=== PATIENT | female | born 1985 | race Two or more races ===

== ENCOUNTER 2023-12-02 09:07 | Emergency (ER) | payer OTHER, SELFPAY ==
--- NOTE | ~2023-12-02 | CT_ITS ---
EXAMINATION: CT SOFT TISSUE NECK WITH CONTRAST CLINICAL INFORMATION: Right-sided pain and swelling under jaw. COMPARISON: None available. TECHNIQUE: Following the intravenous administration of 60 mL of Omnipaque 350 contrast, helical imaging was performed in the axial plane with generation of coronal and sagittal reformatted images. This CT examination was performed using dose optimization techniques as appropriate, variously including the following: *Automated exposure control *Adjustment of mA and/or kV according to patient size (this includes techniques or standardized protocols for targeted exams where dose is matched to indication/reason for exam; i.e. extremities or head) *Use of iterative reconstruction technique DLP: 669 mGy-cm FINDINGS: There are focal inflammatory changes in the right lower facial soft tissues with mild thickening of the overlying skin surface from presumed cellulitis. The right hemimandibular gingivobuccal soft tissues are mildly thickened. No periodontal or periapical disease is seen. No drainable fluid collection is identified. The submandibular and parotid glands are homogeneous in attenuation. No pathologically enlarged cervical lymph nodes are visible. The oral cavity, pharynx mucosal space, and larynx are normal. The thyroid gland is homogeneous. The airway is normally maintained. The paranasal sinuses and mastoid air cells are clear. There is a 1 cm air density in the right tracheoesophageal groove at the C6-C7 level which may represent an incidental Zenker's diverticulum. The imaged mediastinum is normal. No acute osseous abnormality seen. The carotid sheath vasculature appears normal. The orbits are normal. The imaged portions of the brain demonstrate no acute abnormality. There are patchy and confluent groundglass densities in the imaged portions of the lungs, more so in the upper lobes. No pleural effusion is seen. CT/CT soft tissue neck w IV con IMPRESSION: Nonspecific focal inflammatory changes in the right hemimandibular gingivobuccal soft tissues and right lower facial subcutaneous tissues. No obvious periodontal or periapical disease seen in the right mandibular dentition. No drainable fluid collection or cervical adenopathy. Mild patchy and confluent groundglass densities in the imaged lungs, more so in the upper lobes which may be due to atelectatic and hypoventilatory changes. An infectious or inflammatory process cannot be ruled out on the basis of imaging; clinically correlate. Electronically signed by: Antonio Davis MD 12/02/2023 01:14 PM EDT
[2023-12-02 09:09] VITALS: BP 136/66; PULSE 64; RESP 16; TEMP 36.6; O2SAT 98; BMI 37.7
[2023-12-02 09:41] VITALS: BP 140/89; PULSE 79; RESP 18; TEMP 36.7
--- NOTE | 2023-12-02 09:44 | ED.GENADULT ---
HPI - General Adult General Chief complaint: General Medical Stated complaint: r face numb-swelling Time Seen by Provider: 12/02/23 09:44 History of Present Illness ED Provider: Mark PETE narrative: The patient is a 38-year-old woman who says that last night at around 20:00 she developed a sense of discomfort, swelling, and numbness under the right jaw. She denies any dental pain. She denies any trauma. She has not had a fever. She has this before. Came to the emergency room for evaluation. Related Data Previous Rx's ?Medication ?Instructions ?Recorded amoxicillin 875 mg-potassium 1 tab PO BID #20 tabs 12/02/23 clavulanate 125 mg tablet doxycycline monohydrate 100 mg 100 mg PO BID #20 caps 12/02/23 capsule Allergies Allergy/AdvReac Type Severity Reaction Status Date / Time latex Allergy Itching Verified 12/02/23 09:13 Review of Systems Review of Systems: Yes all other systems are reviewed and are negative [facility] Social History Social History Advance Directives: Yes Advance Directives Information Provided: Yes Advance Directives on File: No Physical Exam ED Vital Signs: Vital Signs - 24 hr 12/02/23 09:09 12/02/23 09:41 12/02/23 14:55 Temperature 98 F 98.1 F 97.6 F Pulse Rate 64 79 61 Respiratory Rate 16 18 16 Blood Pressure 136/66 140/89 H 116/76 Pulse Oximetry 98 99 Oxygen Delivery Method Room Air Room Air Room Air BMI result Body Mass Index 37.7 Const Other: The patient is a 38-year-old woman who was awake and alert. She has some mild swelling over the right jaw but otherwise does not appear in distress. HENMT Other: Mild swelling to the skin over the right jaw. No erythema. She has tenderness in the region of the swelling which is just under the right mandible. There is no trismus. No obvious dental abnormality. No tenderness with dental tapping. No cervical adenopathy. No elevation of the floor of the mouth. The floor of the mouth is not tender. Eyes General: appearance normal, both eyes and all related structures Pupils: Equal, round and reactive pupils present EOM: EOMs intact bilaterally Neck Other: The patient has swelling and tenderness just under the right mandible. There is no adenopathy in the neck. She has good range of motion of the neck. Resp Effort & Inspection: normal respiratory effort Auscultation: clear to auscultation bilaterally Cardio Rate: regular rate Rhythm: regular rhythm Heart sounds: S1 normal heart sound present and S2 normal heart sound present Skin Other: There is some mild soft tissue swelling and tenderness on the right side of the jaw, just under the jaw. No fluctuance. No erythema. Neuro Other: The patient is awake, alert, with a normal mental status. She has some slight asymmetry of the face with smiling. I think this is because of the soft tissue swelling at the right jaw rather than because of any neurological deficit. Speech is clear. Eye movements intact. Normal gait. Cranial nerves: Yes Equal, round and reactive pupils present Extrem Other: No peripheral edema Medications Administered Discontinued Medications Generic Name Dose Route Start Last Admin Trade Name Freq PRN Reason Stop Dose Admin Doxycycline Monohydrate 100 mg 12/02/23 13:25 12/02/23 14:39 Doxycycline Monohydrate 100 Mg Capsule PO 12/02/23 13:26 100 mg ONCE ONE Administration Sodium Chloride 1,000 mls @ 999 mls/hr 12/02/23 10:15 12/02/23 11:41 Ns IV 12/02/23 11:15 Infused .Q1H1M JT Infusion Sodium Chloride 1,000 mls @ 999 mls/hr 12/02/23 11:45 12/02/23 14:34 Ns IV 12/02/23 12:45 Infused .Q1H1M JT Infusion Ampicillin Sodium/Sulbactam 100 mls @ 200 mls/hr 12/02/23 13:23 12/02/23 14:38 Sodium 3 gm/ Sodium Chloride IV 12/02/23 13:52 200 mls/hr ONCE ONE Administration Iohexol 100 ml 12/02/23 12:49 12/02/23 12:50 Iohexol 350 Mg/Ml 100 Ml Infus..Btl IV 12/02/23 12:50 60 ml ONCE ONE Administration Ketorolac Tromethamine 10 mg 12/02/23 13:26 12/02/23 14:39 Ketorolac Tromethamine 15 Mg/Ml Vial IVPUSH 12/02/23 13:27 10 mg ONCE ONE Administration Medical Decision Making Medical Decision Making MDM Narrative: The patient is a 38-year-old female who presents with less than 24 hours of swelling and discomfort and numbness to the right side of her jaw. I do not appreciate any odontogenic source of infection. I do not appreciate any fluctuance in the area of swelling and tenderness. She does not look toxic. A CT of the neck shows: Nonspecific focal inflammatory changes in the right hemimandibular gingivobuccal soft tissues and right lower facial subcutaneous tissues. No obvious periodontal or periapical disease seen in the right mandibular dentition. No drainable fluid collection or cervical adenopathy. I believe the patient has a non odontogenic soft tissue infection to the skin over the jaw. She was given 3 g of IV Unasyn and 100 mg of oral doxycycline. She will be discharged with a prescriptions for Augmentin and doxycycline. She should take these antibiotics. She should follow up with the regular doctor. She should return to the emergency room if worse. Labs were unremarkable. Lab Data 12/02/23 12:00 12/02/23 12:00 Labs: Lab Results 12/02/23 Range/Units 12:00 WBC 9.2 (4.8-10.8) X10*3/uL RBC 4.25 (4.20-5.50) X10*6/uL Hgb 13.1 (12.0-16.0) g/dl Hct 38.9 (37.0-47.0) % MCV 91.5 (80.0-98.0) fL MCH 30.8 (27.0-33.0) pg MCHC 33.7 (31.0-35.0) g/dl RDW 12.7 (11.0-16.0) % Plt Count 186 (160-400) X10*3/uL MPV 9.7 (9.4-12.3) fL Immature Gran % (Auto) 0.2 (0.0-0.4) % Neut % (Auto) 69.6 (45-73) % Lymph % (Auto) 19.9 L (20-40) % Custer % (Auto) 6.3 (2-11) % Eos % (Auto) 3.7 (0-4) % Baso % (Auto) 0.3 (0-2) % Lymph # (Auto) 1.8 (1.2-4.9) X10*3/uL Custer # (Auto) 0.6 (0.1-1.2) X10*3/uL Eos # (Auto) 0.3 (0.0-0.4) X10*3/uL Baso # (Auto) 0.0 (0.0-0.2) X10*3/uL Abs Immat Gran (auto) 0.02 (0.00-0.03) X10*3/uL Absolute Neuts (auto) 6.4 (2.0-8.3) x10*3/uL Absolute Nucleated RBC 0.000 (0.0-0.012) X10*3/uL Nucleated RBC % (auto) 0.0 (0.0-0.2) /100WBC Sodium 140 (135-145) mmol/L Potassium 3.7 (3.3-5.1) mmol/L Chloride 107 (96-108) mmol/L Carbon Dioxide 24 (22-29) mmol/L Anion Gap 13 (12-20) BUN 8 L (9-16) mg/dL Creatinine 0.64 (0.5-1.4) mg/dL Estim Creat Clear Calc 124.4 Estimated GFR > 60 Random Glucose 91 (60-115) mg/dL Calcium 8.9 (8.4-10.2) mg/dL C-Reactive Protein 2.15 H (< or = 0.50) mg/dL Beta HCG, Quant < 2 mIU/mL Discharge Plan Discharge Clinical Impression: Cellulitis of face Patient Disposition: Home, Self-Care Instructions: Cellulitis (ED) Additional Instructions: You have an infection in the soft tissues of your face near the right jaw. We call this kind of infection a cellulitis. You have been given 2 different antibiotics for this infection. Please take these antibiotics 2 times a day. Take a dose of the each of these antibiotics this evening. Please follow up with your regular doctor in the next several days for a recheck. You may use ibuprofen and acetaminophen as needed for discomfort. Return to the emergency room if significantly worse. Prescriptions: New amoxicillin-pot clavulanate 875-125 mg tablet 1 tab PO BID Qty: 20 0RF doxycycline monohydrate 100 mg capsule 100 mg PO BID Qty: 20 0RF Referrals: Mari irma. Kayla Gonzales [Provider Group] (facial cellulitis) Interventions: ED Discharge Assessment Last Done: 12/02/23 14:55 Discharge Date/Time: 12/02/23 14:55 Print Language: [place] Islander
[2023-12-02] MEDS: 0.9 % Sodium Chloride 1,000 ML 999 ML IV ×2 (10:24→12:46)
--- NOTE | 2023-12-02 10:26 | PC.NURSE ---
Pt. medicated per JUN.
--- NOTE | 2023-12-02 10:27 | PC.NURSE ---
20G to LAC. Tolerated well. Good blood return.
[2023-12-02 12:04] LABS: MANUAL DIFF FLAG NO
[2023-12-02 12:07] LABS: Basophils Percent Auto 0.3 % (0-2); Eosinophils Absolute Auto 0.3 X10*3/uL (0.0-0.4); Eosinophils Percent Auto 3.7 % (0-4); Hematocrit 38.9 % (37.0-47.0); Hemoglobin 13.1 g/dl (12.0-16.0); Imm Gran Abs Auto 0.02 X10*3/uL (0.00-0.03); Imm Gran Pct Auto 0.2 % (0.0-0.4); Lymphocytes Absolute Auto 1.8 X10*3/uL (1.2-4.9); Lymphocytes Percent Auto 19.9 % (20-40); Mean Corpuscular HGB Conc 33.7 g/dl (31.0-35.0); Mean Corpuscular Hemoglobin 30.8 pg (27.0-33.0); Mean Corpuscular Volume 91.5 fL (80.0-98.0); Mean Platelet Volume 9.7 fL (9.4-12.3); Monocytes Absolute Auto 0.6 X10*3/uL (0.1-1.2); Monocytes Percent Auto 6.3 % (2-11); Neutrophils Absolute Auto 6.4 x10*3/uL (2.0-8.3); Neutrophils Percent Auto 69.6 % (45-73); Platelet Count 186 X10*3/uL (160-400); Red Blood Count 4.25 X10*6/uL (4.20-5.50); Red Cell Distribution Width 12.7 % (11.0-16.0); White Blood Count 9.2 X10*3/uL (4.8-10.8)
[2023-12-02 12:25] LABS: Anion Gap 13 (12-20); Blood Urea Nitrogen 8 mg/dL (9-16); C Reactive Protein 2.15 mg/dL (< or = 0.50); Calcium 8.9 mg/dL (8.4-10.2); Carbon Dioxide 24 mmol/L (22-29); Chloride 107 mmol/L (96-108); Creatinine Clr Calc Pharmacy 124.4; Estimated Glomerular Filt Rate > 60; Glucose Random 91 mg/dL (60-115); Potassium 3.7 mmol/L (3.3-5.1); Sodium 140 mmol/L (135-145)
[2023-12-02 12:28] LABS: HCG Quantitative < 2 mIU/mL
--- NOTE | 2023-12-02 12:35 | PC.NURSE ---
Pt. going to CT scan at this time
--- NOTE | 2023-12-02 12:45 | PC.NURSE ---
Pt. returned from CT scan
[2023-12-02] MEDS: iohexoL 350 MG/ML 100 ML INFUS..BTL IV (12:50)
[2023-12-02] MEDS: Ampicillin Sodium/Sulbactam Na 3 GM in 0.9 % Sodium Chloride 100 ML IV (14:38)
[2023-12-02] MEDS: Doxycycline Monohydrate 100 MG CAPSULE PO (14:39)
[2023-12-02] MEDS: Ketorolac Tromethamine 15 MG/ML VIAL 10 MG IVPUSH (14:39)
[2023-12-02 14:55] VITALS: BP 116/76; PULSE 61; RESP 16; TEMP 36.4; O2SAT 99
== END 2023-12-02 14:55 | disposition home or self-care (01) ==
PROVIDERS: Emergency Provider Emergency Medicine
DX: L03.211 Cellulitis of face (principal); R68.84 Jaw pain
CPT/HCPCS: 36415; 70491; 80048; 84702; 85025; 86140; 96361; 96374; 96375; 99284; J0295; J1885; Q9967

== ENCOUNTER 2024-07-18 08:48 | Outpatient (AMB) | payer OTHER, SELFPAY ==
--- NOTE | 2024-07-18 08:56 | AM.OFFWIN_ITS ---
Intake Vital Signs 07/18/24 08:57 Weight 209 lb BP 110/80 Blood Pressure Location Lt brachial Position Sitting Pulse 74 Pulse Source Pulse Oximeter Pulse Oximetry (%) 98 Oxygen Delivery Method Room Air Intake Visit Reasons: EP RT eye irritaiton Intake Note: Patient here for right eye itching and woke up with it closed with discharge this morning. Patient Tobacco Use Status: Current everyday Tobacco user Allergies latex Allergy (Verified 07/18/24 08:58) Itching Do you need a note to return to daycare/school/sports/work: No HPI HPI Comments History of Present Illness Details This is a 39-year-old female with no stated past medical history presenting for evaluation of redness and itching in her right eye that she woke up with yesterday and today. Patient denies having any fevers, chills, visual changes, blurry vision and does not wear any contacts or glasses for vision. Patient states she has not had contact with anyone with similar symptoms. Patient denies having any symptoms in her left eye. [facility] Social History Patient Tobacco Use Status: Current everyday Tobacco user Review of Systems Const All systems reviewed & are unremarkable except as noted in HPI and below Eyes Denies blind spots, Denies blurry vision, Denies change in vision, Reports eye discharge (OD) and Reports itchy eyes (OD) ENT Reports no additional complaints Card Reports no additional complaints Resp Reports no additional complaints GI Reports no additional complaints Musc Reports no additional complaints Skin/Breast Reports system reviewed and no additional complaints, except as documented Neuro Reports no additional complaints Psych Reports no additional complaints Endo Reports no additional complaints Chauncey/Lymph Reports no additional complaints Aller/Immun Reports no additional complaints and Reports itchy eyes (OD) Physical Exam Vital Signs: Last Vital Signs Pulse 74 07/18/24 08:57 BP 110/80 07/18/24 08:57 Pulse Ox 98 07/18/24 08:57 Oxygen Delivery Method Room Air 07/18/24 08:57 Const General: cooperative, healthy appearing, comfortable, no acute distress, well developed, alert, awake and Physically active Nutritional Appearance: well nourished Orientation/consciousness: patient oriented x3 Limitations: no limitations Eyes General: appearance normal, both eyes and all related structures Visual Vergara: normal visual vergara by confrontation Alignment and Position: alignment normal Periorbital: periorbital findings normal Eyelids: Yes eyelid abnormality (right upper eyelid with mild edema and TTP medial aspect) Conjunctivae: conjunctival abnormal (right conjunctiva injected; no discharge or foreign body noted) Sclerae: sclerae normal Corneas: corneas normal Pupils: Equal, round and reactive pupils present EOM: EOMs intact bilaterally Direct Ophthalmoscopy: normal light reflex and no photophobia Skin General skin exam: no rashes or lesions noted Neuro General: patient oriented x3 Cranial nerves: Yes Equal, round and reactive pupils present Psych Appearance: grossly normal Mental Status: mental status grossly normal Insight: Good insight present (Psych) Judgement: Good judgement present (Psych) Assessment & Plan Assessment & Plan (1) Conjunctivitis: Comment: Patient's symptoms are consistent with a conjunctivitis however there are no symptoms in the left eye. Patient will be treated with antibiotic eyedrops for prevention of an exacerbation. Code(s): H10.9 - Unspecified conjunctivitis Qualifiers: Conjunctivitis type: acute Acute conjunctivitis type: unspecified Plan: Polymyxin trimethoprim eyedrops q.i.d. x5 days. (2) Hordeolum: Comment: Patient's history coupled with her physical examination may be consistent with an evolving hordeolum of the right upper eyelid. Code(s): H00.019 - Hordeolum externum unspecified eye, unspecified eyelid Qualifiers: Hordeolum type: externum Laterality: right Eyelid: upper Qualified Code(s): H00.011 - Hordeolum externum right upper eyelid Plan: Warm compresses 4-5 times daily for 5-7 days. Tylenol as needed for discomfort. Medications: New polymyxin B sulf-trimethoprim 10,000 unit- 1 mg/mL 1 drp ophthalmic (eye) QID 5 days 10 mL 0RF Discontinued doxycycline monohydrate Discontinued Reason: Patient Completed Course 100 mg PO BID 20 caps 0RF amoxicillin-pot clavulanate 875-125 mg Discontinued Reason: Patient Completed Course 1 tab PO BID 20 tabs 0RF Coding Level of Care Code Est Pt Level 3 (54958) Diagnoses Conjunctivitis H10.9 Conjunctivitis type: acute Acute conjunctivitis type: unspecified Hordeolum externum of right upper eyelid H00.011 Hordeolum type: externum Laterality: right Eyelid: upper Time Spent (min) 20
[2024-07-18 08:57] VITALS: BP 110/80; PULSE 74; O2SAT 98
--- OUTSIDE RECORDS SUMMARY | 2024-07-18 09:20 | XMS_ITS | Clinical Summary ---
Author Organization [facility] [address] [place] [address] [place] [phone] Phone Care Team Providers Care Assistant Housekeeping Manager Name Role Phone Janee Cervantes MD Primary Care Prov ider Allergies Active Allergy Reactions Criticality Noted Date Comments Latex Hives 08/24/2016 Medications dicyclomine (BENTYL) 10 mg capsule Take 1 Capsule by mouth 3 times daily. 04/08/2023 Active nystatin (MYCOSTATIN) ointmentIndicat ions:Skin yeast infection Apply a thin layer to the affected area twice daily 30 g 05/26/2024 Active Active Problems Problem Noted Date Diagnosed Date Class 2 obesity due to exces s calories without serious comorbidity with body mass index (BMI) of 35.0 to 35.9 in adult 03/16/2024 Prediabetes 11/26/2023 Overview (03/16/2024): Lab Results Component Value Date HGBA1C 6.1 11/23/2023 Anemia 09/01/2010 Encounters Date Type Department Care Team Description 05/26/2024 10:15 AM EST Office Visit Obstetrics and Gynecology [address] [phone] Amelia Kwok CNM Skin yeast infection (Primary Dx) from Last 3 Months Immunizations Name Administration Dates Next Due HPV, Quadrivalent 07/26/2007,05/26/2007 Influenza trivalent, 0.5mL, preservative free (Fluarix; FluLaval; Fluzone) ages 6mo and older (Afluria) 3 years and older 02/23/2020,12/24/2014,01/11/2014 Tdap Tetanus diptheria acell ular pertussis (Boostrix; Adacel) 7yo and older 03/19/2015,09/13/2013,11/29/2009 Surgical History Surgery Date Site/Laterality Comments TUBAL LIGATION 2019 PROCEDURE: HISTORICAL TUBAL LIGATION Medical History Medical History Date Comments Anemia DX:Anemia Smoker DX:Smoker Obese DX:Obese History of depression DX:History of depression IUD (intrauterine device) in place 11/11/2015 DX:IUD (intrauterine device) in place; COMMENT: Mirena Family History Medical History Relation Name Comments Eczema Daughter 1 No Known Problems Daughter 2 Diabetes Father eczema, glaucom a Hyperlipidemia Father Hypertension Father Colon cancer Father's side aunt No Known Problems Maternal Grandfather No Known Problems Maternal Grandmother Diabetes Mother eczema, CTS Hyperlipidemia Mother Hypertension Mother Ovarian cancer Mother's side aunt Other: ? cancer Paternal Grandfather Alzheimer's disease Paternal Grandmother Hypertension Paternal Grandmother No Known Problems Sister 1 No Known Problems Sister 2 Other: Autism Son Relation Name Status Comments Daughter 1 Alive Daughter 2 Alive Father Alive Father's side Maternal Grandfather Maternal Grandmother Mother Alive Mother's side Paternal Grandfather Paternal Grandmother Sister 1 Alive Sister 2 Alive Son Alive Social History Tobacco Use Types Packs/Day Years Used Date Smoking Tobacco: Every Day Cigarettes Smokeless Tobacco: Never Alcohol Use Standard Drinks/Week Comments No 0 (1 standard drink = 0.6 oz pur e alcohol) Housing Instability Answer Date Recorde d Are you worried that in the next 2 months you may not have stable housing? No 05/19/2024 Food Access & Nutrition Answer Date Rec orded Do you have access to a vari ety of food including fruits and vegetables? No 05/19/2024 Access to Healthcare Answer Date Record ed Within the last 3 months, ho w many times did you visit the emergency department for your medical care? 0 05/19/2024 Health Literacy Answer Date Recorded How often do you need to hav e someone help you when you read instructions, pamphlets, or other written material from your doctor or pharmacy? Never 05/19/2024 Caregiver: How often do you need to have someone help you when you read instructions, pamphlets, or other written material from your doctor or pharmacy? Not on file 05/19/2024 Financial Risk Answer Date Recorded How hard is it for you to pa y for the very basics like food, housing, medical care, and air conditioning / heating? Somewhat hard 05/19/2024 Transportation Answer Date Recorded Has the lack of transportati on kept you from meetings, work, or from getting things needed for daily living? No Has the lack of transportati on kept you from medical appointments or from getting medications? No 05/19/2024 Social Isolation Answer Date Recorded How often do you feel lonely or isolated from th ose around you? Never 05/19/2024 Food Risk Answer Date Recorded Within the past 12 months we worried whether our food would run out before we got money to buy more. Sometimes true 025 Within the past 12 months th e food we bought just didn't last and we didn't have money to get more. Sometimes true 05/19/2024 Dependent Care Answer Date Recorded Do you need help finding or paying for care for your loved ones. For example, child care centre director or elderly care for an older adult? No 05/19/2024 Education Answer Date Recorded Do you think completing more education or training, like finishing a GED, going to college, or learning a trade, would be helpful for you? No 05/19/2024 Employment and Income Answer Date Recor ded During the last four weeks, have you been actively looking for work? Yes 05/19/2024 Living Situation Answer Date Recorded What is your living situation? 0 05/19/2024 Comments No Sex and Gender Information Value Date Recorded Sex Assigned at Not on file Legal Sex Female 3:30 AM EST Gender Identity Not on file Sexual Orientation Not on file Obstetrics History Para Term AB IAB SAB Ectopic Multiple Livin g Live Births 3 3 3 3 3 Date Outcome GA Total Labor Labor/2nd/3rd Weight Sex Type Anes PTL Elsi A1 A5 Name Clin 2013 Term 40w 1d 9h 12m/ 3277 g (115.6 oz) F Vag-S pont Epidur al Livin g 8 9 Yemiel andrade [facility] Delivery Location:[facility] 2015 Term 40w 1d 3544 g (125 oz) F Vag-S pont [facility] Marilu Reynolds Famil y life 2019 Term [place] lobo Last Filed Vital Signs Vital Sign Reading Time Taken Comments Blood Pressure 137/88 05/26/2024 10:07 AM EST Pulse 87 05/26/2024 10:07 AM EST Temperature - - Respiratory Rate - - Oxygen Saturation - - Inhaled Oxygen Concentration - - Weight 90 kg (198 lb 6.4 oz) 05/26/2024 10:07 AM EST Height 154.9 cm (5' 1 ) 05/26/2024 10:07 AM EST Body Mass Index 37.49 05/26/2024 10:07 AM EST Plan of Treatment Upcoming Encounters Date Type Department Care Team (Late st Contact Info) Description 10/11/2024 11:15 AM EDT Office Visit Obstetrics and Gynecology [address] [phone] Amelia Kwok, RENATO [address] [place], [place] 11/27/2024 12:00 PM EDT Office Visit Adult Medicine [facility] - [address] [phone] Debbi Mckeon PA [address] [place], [place] Health Maintenance Due Date Last Done Comments Hepatitis B Vaccines (1 of 3 - 19+ 3-dose series) 2006 Pneumococcal Vaccine: Pediatrics (0 to 5 Years) and At-Risk Patients (6 to 64 Years) (1 of 2 - PCV) 2006 HPV Vaccines (3 - 3-dose series) 11/24/2007 07/26/2007, 05/26/2007 COVID-19 Vaccine (3 - 2023- season) 2023 10/17/2020, 09/15/2020 Influenza Vaccine (#1) 2023 , 12/27/2018, 12/24/2014, Additional history exists Depression Screening 05/19/2025 05/19/2024, 11/22/19 Social Influencers of Health Screening 05/19/2025 05/19/2024 Cervical Cancer Screening: HPV 10/07/2027 10/06/2022 Cholesterol Screening (Lipid Panel) 11/22/2028 11/23/2023, 11/23/2023 DTaP,Tdap,and Td Vaccines (5 - Td or Tdap) 01/24/2029 01/24/2019, 03/19/2015, 09/13/2013, Additional history exists MMR Vaccines Aged Out 04/25/2019 No longer eligi ble based on patient's age to complete this topic HIV Screening Completed 10/06/2022 Hepatitis C Screening Completed 10/06/2022 HIB Vaccines Aged Out No longer eligi ble based on patient's age to complete this topic Hepatitis A Vaccines Aged Out No long er eligible based on patient's age to complete this topic IPV Vaccines Aged Out No longer eligi ble based on patient's age to complete this topic Meningococcal ACWY Vaccine Aged Out N o longer eligible based on patient's age to complete this topic Meningococcal B Vaccine Aged Out No l onger eligible based on patient's age to complete this topic RSV Immunization Patients Under 20 months Aged Out No longer eligible based on patient's age to complete this topic Varicella Vaccines Aged Out No longer eligible based on patient's age to complete this topic Procedures Procedure Name Priority Date/Time Associated Diagnosis Comments LIPID PANEL Routine 11/23/2023 DEPRESSION SCREENING Routine 11/22/2023 HPV Routine 10/06/2022 HEPATITIS C SCREENING Routine 10/06/2022 HIV SCREENING Routine 10/06/2022 from Last 3 Months or Most Recently Relevant to Health Maintenance Results * (ABNORMAL) Lipid panel (11/23/2023) LDL/HDL Ratio 4 0 - 4 Triglycerides 139 0 - 150 mg/dL Cholesterol 187 0 - 200 mg/dL HDL 43 >=40 mg/dL LDL Cholesterol 117(A) 0 - 100 mg/dL Blood Venous blood specimen / Unknown Historical Provider LAB BLOOD ORDERABLES Claritza l Result * Depression Screening (11/22/2023) Depression Screening Abstracted Historical Provider HEALTH MAINTENANCE Final Result * Cervical Cancer Screening: HPV (10/06/2022) Cervical Cancer Screening: HPV Abstracted, Negative Historical Provider HEALTH MAINTENANCE Final Result * HIV Screening (10/06/2022) Pathologist [facility] HIV Screening Abstracted [facility] Provider HEALTH MAINTENANCE Final Result * Hepatitis C Screening (10/06/2022) Hepatitis C Screening Abstracted [facility] Provider HEALTH MAINTENANCE Final Result from Last 3 Months or Most Recently Relevant to Health Maintenance Insurance [facility] [place] [phone] Care Teams Assistant Housekeeping Manager Relationship Specialty Start Date End Date Janee Cervantes MD [address] [place] [id number] PCP - General 10/06/22
== END 2024-07-18 09:41 | disposition home or self-care (01) ==
PROVIDERS: Visit Provider Physician Assistant
DX: H10.9 Unspecified conjunctivitis (principal); H00.011 Hordeolum externum right upper eyelid

== ENCOUNTER → 2024-07-18 08:48 | Outpatient (BNVA) | payer OTHER, SELFPAY | PROVIDERS: Visit Provider Physician Assistant | DX: H10.9 Unspecified conjunctivitis (principal); H00.011 Hordeolum externum right upper eyelid | CPT/HCPCS: 99212 ==

== ENCOUNTER 2024-10-16 12:22 | Outpatient (AMB) | payer OTHER, SELFPAY ==
[2024-10-16 12:27] VITALS: BP 116/74; PULSE 96; TEMP 36.5; O2SAT 99; BMI 39.5
--- NOTE | 2024-10-16 12:27 | AM.OFFWIN_ITS ---
Intake Vital Signs 10/16/24 12:27 Height 5 ft 1 in Weight 209 lb BMI 39.5 BP 116/74 Blood Pressure Location Lt brachial Position Sitting Pulse 96 Pulse Source Pulse Oximeter Temp 97.7 F Pulse Oximetry (%) 99 Oxygen Delivery Method Room Air Intake Visit Reasons: EP LT ear pain Intake Note: presents with left ear pain and left sided throat pain x2 days, headache this morning Patient Tobacco Use Status: Current everyday Tobacco user Allergies latex Allergy (Verified 10/16/24 12:32) Itching Do you need a note to return to daycare/school/sports/work: No HPI HPI Comments History of Present Illness Details 39 y/o Female patient who [facility] clinic with c/o left ear pain for 3 days now. [facility] Medical History (Updated 10/16/24 @ 12:46 by Stella Gonzales NP) Otitis externa Social History Patient Tobacco Use Status: Current everyday Tobacco user Review of Systems Const All systems reviewed & are unremarkable except as noted in HPI and below Physical Exam Vital Signs: Last Vital Signs Temp 97.7 F 10/16/24 12:27 Pulse 96 10/16/24 12:27 BP 116/74 10/16/24 12:27 Pulse Ox 99 10/16/24 12:27 Oxygen Delivery Method Room Air 10/16/24 12:27 BMI result Body Mass Index 39.5 Const General: no acute distress; No comfortable Nutritional Appearance: obese Orientation/consciousness: patient oriented x3 HEENT Head: Yes normocephalic Ears: external ears normal and TM abnormal bulging bilateral, erythematous on the left, with fluid behind the TM bilateral and retracted on the left; not perforated General nose exam: Normal external nose present Neuro General: patient oriented x3, gait normal and moves all extremities Assessment & Plan Assessment & Plan (1) Otitis externa: Code(s): H60.90 - Unspecified otitis externa, unspecified ear Qualifiers: Otitis externa type: diffuse Chronicity: acute Laterality: left Qualified Code(s): H60.312 - Diffuse otitis externa, left ear Plan: Ordered Ear Drops Abx Acetaminophen for pain relief. Medications: New ciprofloxacin-dexamethasone 0.3-0.1 % 4 drps otic (ear) left BID 7.5 mL 0RF 7 days H60.312 - Diffuse otitis externa, left ear acetaminophen 1,000 mg (2 x 500 mg) PO Q6H PRN 30 caps 0RF pain H60.312 - Di ffuse otitis externa, left ear Coding Level of Care Code Est Pt Level 4 (58287) Diagnoses Acute diffuse otitis externa of left ear H60.312 Otitis externa type: diffuse Chronicity: acute Laterality: left Time Spent (min) 20
--- OUTSIDE RECORDS SUMMARY | 2024-10-16 12:59 | XMS_ITS | Clinical Summary ---
Author Organization [facility] [address] [place] [address] [place] [phone] Phone Care Team Providers Care Textile Machinery Sales Representative Name Role Phone Janee Cervantes MD Primary Care Prov ider Allergies Active Allergy Reactions Criticality Noted Date Comments Latex Hives 08/24/2016 Medications dicyclomine (BENTYL) 10 mg capsule Take 1 Capsule by mouth 3 times daily. 3 Active nystatin (MYCOSTATIN) ointmentIndicat ions:Skin yeast infection Apply a thin layer to the affected area twice daily 30 g 5 Active nystatin (MYCOSTATIN) ointmentIndicat ions:Skin yeast infection Apply a thin layer to the affected area twice daily 30 g 5 09/29/19 25 Discontinu ed(Reorder ) Active Problems Problem Noted Date Diagnosed Date Class 2 obesity due to exces s calories without serious comorbidity with body mass index (BMI) of 35.0 to 35.9 in adult 03/16/2024 Prediabetes 11/26/2023 Overview (03/16/2024): Lab Results Component Value Date HGBA1C 6.1 11/23/2023 Anemia 09/01/2010 Immunizations Name Administration Dates Next Due HPV, [...] care for your loved ones. For example, children's lunchroom supervisor or elderly care for an older adult? [...] pont Epidur al Livin g 8 9 Vilma GROSS Delivery Location:[facility] 2015 Term 40w 1d 3544 g (125 oz) F Vag-S pont Local Livin g Lee zafar [facility] Famil y life 2019 Ramy lobo Last Filed Vital Signs Vital Sign [...] Care Team (Late st Contact Info) Description 11/28/2024 1:30 PM EDT Office Visit Adult Medicine [facility] [address] [place] [phone] Debbi Mckeon PA [address] [place] [address] Health Maintenance Due Date Last Done Comments Hepatitis B Vaccines (1 of 3 - 19+ 3-dose series) 2006 Pneumococcal Vaccine: Pediatrics (0 to 5 Years) and At-Risk Patients (6 to 64 Years) (1 of 2 - PCV) 2006 HPV Vaccines (3 - 3-dose series) 11/24/2007 07/26/2007, 05/26/2007 COVID-19 Vaccine (3 - 2023- season) 2023 10/17/2020, 09/15/2020 Influenza Vaccine (#1) 2024 , 12/27/2018, 12/24/2014, Additional history exists Depression Screening 05/19/2025 05/19/2024, 11/22/19 24 Social Influencers of Health Screening 05/19/2025 05/19/2024 [...] Maintenance Results * (ABNORMAL) Lipid panel (11/23/2023) [facility] LDL/HDL Ratio 4 0 - 4 Triglycerides 139 0 - 150 mg/dL Cholesterol 187 0 - 200 mg/dL HDL 43 >=40 mg/dL LDL Cholesterol 117(A) 0 - 100 mg/dL Blood Venous blood specimen / Unknown Historical Provider LAB BLOOD ORDERABLES Claritza l Result * Depression Screening (11/22/2023) [facility] Depression Screening Abstracted Historical Provider HEALTH MAINTENANCE Final Result * Cervical Cancer Screening: HPV (10/06/2022) [facility] Cervical Cancer Screening: HPV Abstracted, Negative Historical Provider HEALTH MAINTENANCE Final Result * HIV Screening (10/06/2022) Pathologist [facility] HIV Screening Abstracted Historical Provider HEALTH MAINTENANCE Final Result * Hepatitis C Screening (10/06/2022) Hepatitis C Screening Abstracted Historical Provider HEALTH MAINTENANCE Final Result from Last 3 Months or Most Recently Relevant to Health Maintenance Insurance [facility] Care Teams Textile Machinery Sales Representative Relationship Specialty Start Date End Date Janee Cervantes MD [address] [place] [id number] PCP - General 10/06/22
--- OUTSIDE RECORDS SUMMARY | 2024-10-16 12:59 | XMS_ITS | Data Portability ---
Author Organization [facility], [address] Address [address] [place] [address] Care Team Providers Care Virology Teacher Name Role Phone [facility] Prim [place] Care Provider Assessment No assessment recorded. Plan of Treatment Reminders Order Date Submit Date Provider Last Modified By Organization Details Last Modified Time Details Appointments None recorded. Lab rapid strep group A, throat 2022 023 [place] [address] [address], [address] [place] [address], [phone], 3 12:51:04 rapid SARS CoV 2 Ag, QL [place], respiratory specimen 2022 023 [facility], [address] [place] [address], [phone], 3 12:51:05 Referral None recorded. Procedures None recorded. Surgeries None recorded. Imaging None recorded. Medication Orders None recorded. Patient TargetsNo targets recorded. Patient Instructions Encounter Date Encounter Id Patient Instructions Last Modified By Organization Details Last Modified Time 06/04/2022 [id number] sore throat: car e instructions [email or web address] Not available 06/04/2022 12:51:05 coronavirus (covid-19): care instructions [email or web address] Not available 06/04/2022 12:51:05 Reason for Referral None Reported. Results Created Date Observation Date Name Description Value Unit Range Abnormal Flag Note LastModifiedBy Organization Detail LastModifiedTime 06/04/1906/04/2022 rapid SARS CoV 2 Ag, QL [place], respi rator y speci men Unknown Analyte Normal =Negat maciel Not Available [address] [place] [address], [place], [phone], 06/04/2022 12:03:37 06/04/1906/04/2022 rapid SARS CoV 2 Ag, QL [place], respi rator y speci men Unknown Analyte negati ve Not Available [address] [place] [address], [phone], 06/04/2022 12:03:37 06/04/1906/04/2022 rapid strep group A, throa t Unknown Analyte Normal = Negati ve Not Available [address] [place] [address], [phone], 06/04/2022 12:35:26 06/04/1906/04/2022 rapid strep group A, throa t Unknown Analyte negati ve Not Available [address] [place] [address], [place], [phone], 06/04/2022 12:35:26 Result Notes None recorded. Problems No Known Problems Procedures Surgical History Date Name Laterality Status Provider Name and Address Organization Details Recorded Time hysterectomy completed ANATOLIY KENT PA - [facility] 06/04/2022 12:10:08 Imaging Results None recorded. Procedure Notes None recorded. Medical Equipment None Reported. Allergies Allergen ID Allergen Name Allergen Category Reaction Reaction Severity Criticality Documentation Date Start Date Code Code System Note Provider Name and Address Organization Details Recorded Time [id number] latex environme nt,medica tion Not available Not available Not available 06/04/2022 48816 91 RxNorm ANATOLIY guidry PA - [facility] 12:06:23 Medications Not known to be on any medication Vitals Date Recorded Respiratory rate Body weight Body mass index (BMI) Body height Oxygen saturation Oxygen saturation in Arterial blood by Pulse oximetry Heart rate Body temperature Systolic And Diastolic Provider Name and Address Organization Details Last Updated DateTime 18 /min 69537.2 g 36.6 kg/m2 154.94 cm 98 % 98 % 93 /min 98.1 [degF] 111/67 mm[Hg] ANATOLIY KENT PA - [facility] 12:20:09 Social History Question Answer Notes LastModified by OrganOffermobi Details LastModified Time Tobacco Smoking Status Current Every Day Smoker ANATOLIY ALLENLETYRichi chao, PA - [facility] 06/04/2022 12:09:47 How Much Tobacco Do You Smoke? 0.25 PPD Information not available 06/04/2022 Have You Recently Traveled Abroad? No Information not available 06/04/2022 Sex: Unknown Functional Status Question Answer Note LastModified by [employer] Details LastModified Time Do you use any illicit or recreational drugs? No Information not available 06/04/2022 What is your level of alcohol consumption? None Information not available 06/04/2022 Mental Status None recorded. Family History Relationship Description Onset Age of this Age Resolved Age Notes LastModified by Organization Details LastModified Time Father No current problems or disability [email or web address] Not available 06/04 12:08:43 Mother No current problems or disability [email or web address] Not available 06/04 12:08:43 Medical History No medical history recorded. Gynecological HistoryNo gynecological history recorded. Obstetrics History GPAL:G 0 P 0 0 0 0 Past Encounters Encounter ID Performer Location Encounter Start Date Encounter Closed Date Diagnosis/Indication Diagnosis SNOMED-CT Code Diagnosis ICD10 Code Diagnosis Note [id number] [address] [place] [address] 06/08/2020 15:56:01 06/08/2020 17:51:44 [id number] [facility] [address] [place] [address] 04/28/2019 14:18:18 04/28/2019 16:15:07 [id number] [facility] [address] [place] [address] 06/04/2022 11:18:03 06/04/2022 12:53:35 Acute upper respiratory infection 07349646 J06.9 May take Ibuprofen or Tylenol for symptoms as needed Pain in throat 716944050 R07.0 Health Concerns Section Related Observation LastModified by Organization Detai ls LastModified Time None Recorded Concern Status LastModified by Organization Details LastModified Time None Recorded Advance Directives Directive None Recorded Payers Insurance Date Sequence Insurance Name Policy Number Policy Steinberg Covered Member ID Steinberg Member ID Guarantor Name 06/04/2022 1 [facility] - [facility] Excep Apps (MEDICAID REPLACEMENT - HMO) CARY Morgan Y Mina [id number] Cathybimal Enriquez Notes Date Note Type Note Provider Name and Address Organization Details Recorded Time 06/04/2022 text/html Sore throat for 4x days, Exposed 2 weeks ago, requesting rapid. Here with 3 kids all with similar cold symptoms. [facility] [address] [place], [address], PA - [facility] 06/04/2022 12:51:52 OBGyn Episode No OBEpisode recorded.
== END 2024-10-16 12:58 | disposition home or self-care (01) ==
PROVIDERS: Visit Provider Nurse Practitioner Family
DX: H60.312 Diffuse otitis externa, left ear (principal)

== ENCOUNTER → 2024-10-16 12:22 | Outpatient (BNVA) | payer OTHER, SELFPAY | PROVIDERS: Visit Provider Nurse Practitioner Family | DX: H60.312 Diffuse otitis externa, left ear (principal) | CPT/HCPCS: 99212 ==